=== PATIENT | female | born 1985 | race African-American/Black ===

== ENCOUNTER 2018-05-24 00:06 | Emergency (ER) | payer OTHER ==
[~2018-05-24] VITALS: Ht 177.8 cm; Wt 66.7 kg
[2018-05-24 00:23] VITALS: BP 138/82
--- NOTE | 2018-05-24 00:25 | NUR ---
ED Nurse Note: patient walked into Ed c/o of hemorrhoids in her anus, patient states that it started around 6 days ago, patient rates her pain a 10/10 pain. patient denies any bleeding, patient is alert and oriented x4, ambulatory with a steady gait, VSS
[2018-05-24] MEDS ORDERED: estrogen (00:27)
[2018-05-24] MEDS ORDERED: Clindamycin 150mg cap ORAL ONE (00:30)
[2018-05-24] MEDS ORDERED: Norco 5mg/325mg tab ORAL ONE (00:30)
[2018-05-24] MEDS ORDERED: Lidocaine 1% Plain 30 ml INJ ONE (00:45)
[2018-05-24 01:00] VITALS: BP 160/75
--- NOTE | 2018-05-24 01:00 | NUR ---
ED Nurse Note: patient is being discharged from ED after being cleared by ERMD. patient is alert and oriented x4, ambulatory with a steady gait, VSS. patient acknowledged the need to follow up with PMD within a week if symptoms dont improve, patients prescription in hand, ID band removed
[2018-05-24] MEDS ORDERED: IBUPROFEN600 MG ORAL (01:04)
[2018-05-24] MEDS ORDERED: HYDROCODON-ACE1 EA15 ORAL (01:04)
[2018-05-24] MEDS ORDERED: CLINDAMYCIN HC300 MG ORAL (01:04)
--- NOTE | 2018-05-24 01:05 | Emergency Room Report ---
History of Present Illness General Chief Complaint: Pain Source: Patient Present Illness HPI Is a 33-year-old transgender female who presents with rectal pain. Onset for about a week. Now there is swelling and no drainage. Pain is 10 out of 10. Worse with sitting. Worse with movement. No nausea no vomiting. No fever chills but never had this problem before. Denies any other complaint. She does have anal sex. Allergies: Coded Allergies: No Known Allergies (Unverified , 05/24/18) Patient History Past Medical History: see triage record, old chart reviewed Past Surgical History: other Pertinent Family History: none Social History: Denies: smoking Last Menstrual Period: Transgender Now: No Immunizations: other Reviewed Nursing Documentation: PMH: Agreed; PSxH: Agreed Review of Systems Eye: Denies: eye pain, blurred vision ENT: Denies: ear pain, nose congestion, throat swelling Respiratory: Denies: cough, shortness of breath Cardiovascular: Denies: chest pain, palpitations Gastrointestinal: Denies: abdominal pain, diarrhea, nausea, vomiting Musculoskeletal: Denies: back pain, joint pain Skin: Denies: rash Neurological: Denies: headache, numbness Endocrine: Denies: increased thirst, increased urine Hematologic/Lymphatic: Denies: easy bruising All Other Systems: negative except mentioned in HPI Physical Exam Vital Signs Date Time Temp Pulse Resp B/P (MAP) Pulse Ox O2 Delivery O2 Flow Rate FiO2 05/24/18 00:17 98.4 85 16 138/82 95 Room Air vitals normal Sp02 EP Interpretation: reviewed, normal General Appearance: well appearing, no apparent distress, alert Head: normocephalic, atraumatic Eyes: bilateral eye PERRL, bilateral eye EOMI ENT: hearing grossly normal, normal pharynx Neck: full range of motion, supple, no meningismus Respiratory: chest non-tender, lungs clear, normal breath sounds Cardiovascular #1: regular rate, rhythm, no murmur Gastrointestinal: normal bowel sounds, non tender, no mass, no organomegaly, no bruit, non-distended Rectal: other - Rectal: There is a perianal abscess about 3-4 cm. Tender to palpation. This is toward the right buttock. Musculoskeletal: back normal, gait/station normal, normal range of motion Psychiatric: mood/affect normal Skin: warm/dry Procedures Incision and Drainage Incision and Drainage : Consent: Verbal Site: Buttock Blade Size: 11 I & D Procedure: betadine prep Wound Location: other - Buttock Anesthesia: 1% Lidocaine Volume Anesthetic (ccs): 1 Patient Tolerated: Poor Complications: None Progress Area clean with Betadine. Local anesthetic with 1% lidocaine. I made a 1 cm incision. There was copious amount of purulent discharge. Patient cannot tolerate me going further with breaking up loculation or packing. Medical Decision Making Diagnostic Impression: Primary Impression: Perianal abscess ER Course Patient with a perianal abscess. Unlikely to have deep infection. No fever or chills. I did get copious amount of drainage. We'll put on antibiotics. We' ll need to recheck in 2 days. Last Vital Signs Date Time Temp Pulse Resp B/P (MAP) Pulse Ox O2 Delivery O2 Flow Rate FiO2 05/24/18 00:23 98.4 83 16 138/82 95 Room Air Status: improved Disposition: HOME, SELF-CARE Condition: Stable Scripts Ibuprofen* (MOTRIN*) 600 Mg Tablet 600 MG ORAL THREE TIMES A DAY, #30 TAB 0 Refills Prov: Emre Evans MD 05/24/18 Hydrocodone/Acetaminophen 5-325* (HYDROCODONE/ACETAMINOPHEN 5-325*) 1 Each Tablet 1 TAB ORAL Q6H PRN for For Pain, #15 TAB 0 Refills Prov: Emre Evans MD 05/24/18 Clindamycin Hcl (CLINDAMYCIN HCL) 300 Mg Capsule 300 MG ORAL THREE TIMES A DAY, #21 CAP Prov: Emre Evans MD 05/24/18 Referrals: NOT CHOSEN IPA/,REFERRING (PCP) Emre Evans MD May 24, 2018 01:05
== END 2018-05-24 01:00 | disposition home or self-care (01) ==
LOC: EMR 00:45
DX: K61.0 Anal abscess (principal)
CPT/HCPCS: 10060; 99283; J2001; Z7502

== ENCOUNTER 2018-07-06 16:25 | Emergency (ER) | payer OTHER ==
[~2018-07-06] VITALS: Ht 177.8 cm; Wt 66.2 kg
[~2018-07-06 16:25] MED LIST: CLINDAMYCIN HC300 MG ORAL; HYDROCODON-ACE1 EA15 ORAL; IBUPROFEN600 MG ORAL; estrogen
[2018-07-06 16:52] VITALS: BP 116/78
--- NOTE | 2018-07-06 16:53 | NUR ---
ED Nurse Note: pt walked in to ED due to toothache on right lower for last 2 days. AAO x4. respirations even and non-labored noted. will wait for the further order.
[2018-07-06] MEDS ORDERED: Ketorolac 30mg Inj IM ONE (17:15)
[2018-07-06] MEDS ORDERED: AMOXICILLIN500 MG ORAL (17:17)
[2018-07-06] MEDS ORDERED: ACETAMINOPHEN-1 EAC1 ORAL (17:17)
--- NOTE | 2018-07-06 17:17 | Emergency Room Report ---
History of Present Illness General Chief Complaint: Toothache Source: Patient Present Illness HPI 33-year-old female patient presents ER complaint of dental pain for the past 3 days. Reports that "I think 1 of my feelings fell out". Reports pain on the right lower side of her jaw. Reports subjective fever at home yesterday, currently afebrile in ER. States taking Motrin without relief of pain symptoms. Denies history of diabetes or other difficulty. Denies trismus. Reports able to talk without difficulty. Denies chest pain, shortness of breath. States attempted to go see her dentist however was turned away because she not have her dental insurance card and would not be seen without it. Allergies: Coded Allergies: No Known Allergies (Unverified , 05/24/18) Patient History Past Medical History: see triage record Now: No Reviewed Nursing Documentation: PMH: Agreed; PSxH: Agreed Nursing Documentation-PMH Past Medical History: No History, Except For Review of Systems All Other Systems: negative except mentioned in HPI Physical Exam Vital Signs Date Time Temp Pulse Resp B/P (MAP) Pulse Ox O2 Delivery O2 Flow Rate FiO2 07/06/18 16:28 98.1 82 20 116/78 95 Room Air Sp02 EP Interpretation: reviewed, normal General Appearance: well appearing, no apparent distress, alert, GCS 15, non- toxic Head: normocephalic, atraumatic Eyes: bilateral eye normal inspection, bilateral eye PERRL ENT: hearing grossly normal, normal pharynx, no angioedema, normal voice, TMs + canals normal, uvula midline, moist mucus membranes, other - right lower gum: broken tooth, mild erythema, TTP, no abscess Neck: full range of motion, no meningismus Respiratory: lungs clear, normal breath sounds, no rhonchi, no respiratory distress, no accessory muscle use, no wheezing, speaking full sentences Cardiovascular #1: regular rate, rhythm, no edema Gastrointestinal: non tender, soft, no mass, non-distended, no guarding, no rebound Musculoskeletal: back normal, digits/nails normal, gait/station normal, normal range of motion, non-tender Psychiatric: mood/affect normal Skin: no rash Medical Decision Making PA Attestation Dr. Lundy is my supervising Physician whom patient management has been discussed with. Diagnostic Impression: Primary Impression: Toothache ER Course Pt. presents to the ED c/o dental pain. Ddx considered but are not limited to cellulitis, abscess, dental caries, gingivitis. Does not require imaging at this time. Vital signs: are WNL, pt. is afebrile ED INTERVENTIONS: Pain medication provided in the ER. Nontoxic appearing, speaking full sentences, no active draining, mild edema, no trismus or vision changes. No signs of abscess, no fluctuance, erythema or edema. follow-up with dentist. Will provide abx for infection to cover for possible infection. provided with contact information for dentists. F/u with PCP and dentist for further treatment. DISCHARGE: -Rx provided for Amoxicillin -Rx provided for Tylenol No. 3. CURES reviewed. At this time pt. is stable for d/c to home. Patient is resting comfortably, in no acute distress, nontoxic appearing, talking and smiling without difficulty. Will provide printed patient care instructions and any necessary prescriptions. Care plan and follow up instructions have been discussed with the patient prior to discharge. Patient instructed to follow-up with primary care provider in 2 - 3 days. Followup with dentist. Patient questions asked and answered. Patient reports understanding and agreement to treatment plan. ER precautions given. Patient instructed to return to ER immediately for any new or worsening of symptoms including but not limited to fever, worsening of pain symptoms, worsening of erythema, red streaking. - Please note that this Emergency Department Report was dictated using [employer] header technology software, occasionally this can lead to erroneous entry secondary to interpretation by the dictation equipment. Last Vital Signs Date Time Temp Pulse Resp B/P (MAP) Pulse Ox O2 Delivery O2 Flow Rate FiO2 07/06/18 16:52 98.1 82 20 116/78 95 Room Air Status: improved Disposition: HOME, SELF-CARE Condition: Stable Scripts Acetaminophen With Codeine (T#3) (TYLENOL #3 TAB*) Y Tab 1 TAB ORAL Q6HR PRN for For Pain, #10 TAB Prov: George Torres.Chuck 07/06/18 Amoxicillin* (AMOXIL*) 500 Mg Capsule 500 MG ORAL EVERY 8 HOURS for 7 Days, #21 CAP Prov: George Torres.Chuck 07/06/18 Patient Instructions: Dental Pain Additional Instructions: Follow-up with dentist in 2-3 days. Take medications as directed. Do not drink, drive, operate heavy machinery prior to taking medication, may cause drowsiness. Patient questions asked and answered. ER precautions given, patient instructed to return to ER immediately for any new or worsening of symptoms. George Torres Jul 06, 2018 17:17
[2018-07-06 17:29] VITALS: BP 116/78
--- NOTE | 2018-07-06 17:29 | NUR ---
ER DISCHARGE NOTE: Patient is cleared to be discharged per ERMD, pt is aox4, on room air, with stable vital signs. pt was given dc and prescription instructions, pt was able to verbalize understanding, pt id band removed. pt is able to ambulate with steady gait. pt took all belongings.
== END 2018-07-06 17:29 | disposition home or self-care (01) ==
LOC: EMR 17:00
DX: K08.89 Other specified disorders of teeth and supporting structures (principal)
CPT/HCPCS: 96372; 99283; J1885

== ENCOUNTER → 2019-02-05 | Emergency (ER) | payer OTHER ==
[~2019-02-05] VITALS: Ht 177.8 cm; Wt 64.4 kg
[~2019-02-05] MED LIST changes: +ACETAMINOPHEN-1 EAC1 ORAL; +AMOXICILLIN500 MG ORAL; +Dicyclomine HCl 10mg/5ml oral soln ORAL ONE; +Lidocaine 2% Visc 15ml soln ORAL ONE; +Mylanta II UD 30ml ORAL ONE; +ONDANSETRON ODT4 MG BC; +RANITIDINE HCL150 MG ORAL
--- NOTE | 2019-02-05 07:45 | NUR ---
ED Nurse Note: Pt walked in from home c/o vomiting since yesterday. Denies diarrhea. Pt aaox, on room air, no respiratory noted. Pt refused to be in gown, placed on residential monitor shows sinus bradycardia, HR 49-50. Will continue to monitor.
--- NOTE | 2019-02-05 07:50 | NUR ---
ED Nurse Note: IV inserted on right AC 20g, patient tolerated well. Labs drawn and was sent down.
--- NOTE | 2019-02-05 08:00 | NUR ---
ED Nurse Note: ERMD at bedside.
[2019-02-05 08:01] VITALS: BP 101/54
[2019-02-05 08:10] LABS: BASOPHILS % (AUTO) 1.1 % (0.0-2.0); EOSINOPHILS % (AUTO) 2.9 % (0.0-3.0); HEMATOCRIT 40.8 % (37.0-47.0); HEMOGLOBIN 13.4 G/DL (12.0-16.0); LYMPHOCYTES % (AUTO) 27.1 % (20.0-45.0); MEAN CORPUSCULAR VOLUME 92 FL (80-99); MONOCYTES % (AUTO) 8.4 % (1.0-10.0); NEUTROPHILS % (AUTO) 60.4 % (45.0-75.0); PLATELET COUNT 242 K/UL (150-450); RED BLOOD COUNT 4.46 M/UL (4.20-5.40); RED CELL DISTRIBUTION WIDTH 13.8 % (11.6-14.8); WHITE BLOOD COUNT 7.2 K/UL (4.8-10.8)
[2019-02-05 08:35] LABS: ANION GAP 7 mmol/L (5-15); BLOOD UREA NITROGEN 7 mg/dL (7-18); CALCIUM 8.3 MG/DL (8.5-10.1); CARBON DIOXIDE 30 MMOL/L (21-32); CHLORIDE 106 MMOL/L (98-107); POTASSIUM 3.7 MMOL/L (3.5-5.1); SODIUM 143 MMOL/L (136-145)
[2019-02-05 08:40] LABS: ALANINE AMINOTRANSFERASE 12 U/L (12-78); ALBUMIN 3.6 G/DL (3.4-5.0); ALBUMIN/GLOBULIN RATIO 1.1 (1.0-2.7); ALKALINE PHOSPHATASE 55 U/L (46-116); ASPARTATE AMINO TRANSFERASE 17 U/L (15-37); BILIRUBIN,TOTAL 0.3 MG/DL (0.2-1.0)
[2019-02-05 09:12] LABS: APPEARANCE,URINE CLEAR; BILIRUBIN, URINE NEGATIVE (NEGATIVE); GLUCOSE, URINE (UA) NEGATIVE (NEGATIVE); KETONES,URINE NEGATIVE (NEGATIVE); LEUKOCYTE ESTERASE ,URINE 1+ (NEGATIVE); NITRITE,URINE NEGATIVE (NEGATIVE); PH,URINE 8 (4.5-8.0); PROTEIN,URINE NEGATIVE (NEGATIVE); UROBILINOGEN,URINE NORMAL MG/DL (0.0-1.0)
[2019-02-05 09:14] LABS: COLOR,URINE YELLOW
[2019-02-05 09:16] VITALS: BP 102/62
--- NOTE | 2019-02-05 09:50 | NUR ---
ER DISCHARGE NOTE: Patient is cleared to be discharged per ERMD, pt is aox4, on room air, with stable vital signs. pt was given dc and prescription instructions, pt was able to verbalize understanding, pt id band and iv site removed without complications. pt is able to ambulate with steady gait. pt took all belongings.
[2019-02-05 09:51] VITALS: BP 117/72
--- NOTE | 2019-02-05 10:57 | Emergency Room Report ---
History of Present Illness General Chief Complaint: Abdominal Pain Source: Patient Present Illness HPI 34-year-old transgender female presents ED for evaluation. Complaining of abdominal pain with nausea and vomiting. Started yesterday morning. States the night prior she ate some poorly cooked pasta. States she is been having multiple episodes of vomiting and abdominal pain. Epigastric, burning, 7 out of 10, nonradiating. Denies fevers or chills. Denies chest pain. Denies diarrhea. Denies sick contacts or recent travel. No other aggravating relieving factors. Denies any other associated symptoms Allergies: Coded Allergies: No Known Allergies (Unverified , 05/24/18) Patient History Past Medical History: HIV Past Surgical History: other - transgender Pertinent Family History: none Social History: Denies: smoking, alcohol use, drug use Now: No Immunizations: UTD Reviewed Nursing Documentation: PMH: Agreed; PSxH: Agreed Nursing Documentation-PMH Past Medical History: No History, Except For Review of Systems All Other Systems: negative except mentioned in HPI Physical Exam Vital Signs Date Time Temp Pulse Resp B/P (MAP) Pulse Ox O2 Delivery O2 Flow Rate FiO2 02/05/19 07:34 97.5 55 16 112/76 (88) 98 Room Air Sp02 EP Interpretation: reviewed, normal General Appearance: no apparent distress, alert, GCS 15, non-toxic, thin Head: normocephalic, atraumatic Eyes: bilateral eye normal inspection, bilateral eye PERRL ENT: hearing grossly normal, normal pharynx, no angioedema, normal voice Neck: full range of motion, supple/symm/no masses Respiratory: chest non-tender, lungs clear, normal breath sounds, speaking full sentences Cardiovascular #1: regular rate, rhythm, no edema Cardiovascular #2: 2+ carotid (R), 2+ carotid (L), 2+ radial (R), 2+ radial (L) , 2+ dorsalis pedis (R), 2+ dorsalis pedis (L) Gastrointestinal: normal bowel sounds, soft, non-distended, no guarding, no rebound, tenderness - epigastric Rectal: deferred Genitourinary: normal inspection, no CVA tenderness Musculoskeletal: back normal, gait/station normal, normal range of motion, non- tender Neurologic: alert, oriented x3, responsive, motor strength/tone normal, sensory intact, speech normal Psychiatric: judgement/insight normal, memory normal, mood/affect normal, no suicidal/homicidal ideation Reflexes: 3+ bicep (R), 3+ bicep (L), 3+ tricep (R), 3+ tricep (L), 3+ knee (R) , 3+ knee (L) Skin: no rash Lymphatic: no adenopathy Medical Decision Making Diagnostic Impression: Primary Impression: Gastritis Qualified Codes: K29.00 - Acute gastritis without bleeding ER Course Hospital Course 34-year-old transgender F presents to ED with epigastric pain with N/V. differential diagnosis: gastritis, SBO, cholecystits Clinical course Patient placed on stretcher. On anatomic pathology assistant. After initial history and physical I ordered labs, IV fluids, Zofran, pepcid, GI cocktail Labs - no leukocytosis, no electrolyte abnormalities, LFTs normal, UA unremarkable on reassessment patient states she feels better. Tolerating p.o. intake. Discussed findings with patient. Will discharge to home. States she has a PMD I feel this is a highly complex case requiring extensive working including EKG/ Rhythm strip, Xray/CT/US, Blood/urine lab work, repeat exams while in ED, and administration of strong opiates/narcotics for pain control, admission to hospital or close patient follow up. Diagnosis - gastritis Stable and discharged to home with prescriptions for Zantac, zofran. Followup with PMD. Return to ED if symptoms recur or worsen Labs Test 02/05/19 07:52 02/05/19 09:00 White Blood Count 7.2 K/UL (4.8-10.8) Red Blood Count 4.46 M/UL (4.20-5.40) Hemoglobin 13.4 G/DL (12.0-16.0) Hematocrit 40.8 % (37.0-47.0) Mean Corpuscular Volume 92 FL (80-99) Mean Corpuscular Hemoglobin 30.0 PG (27.0-31.0) Mean Corpuscular Hemoglobin Concent 32.8 G/DL (32.0-36.0) Red Cell Distribution Width 13.8 % (11.6-14.8) Platelet Count 242 K/UL (150-450) Mean Platelet Volume 7.4 FL (6.5-10.1) Neutrophils (%) (Auto) 60.4 % (45.0-75.0) Lymphocytes (%) (Auto) 27.1 % (20.0-45.0) Monocytes (%) (Auto) 8.4 % (1.0-10.0) Eosinophils (%) (Auto) 2.9 % (0.0-3.0) Basophils (%) (Auto) 1.1 % (0.0-2.0) Sodium Level 143 MMOL/L (136-145) Potassium Level 3.7 MMOL/L (3.5-5.1) Chloride Level 106 MMOL/L (98-107) Carbon Dioxide Level 30 MMOL/L (21-32) Anion Gap 7 mmol/L (5-15) Blood Urea Nitrogen 7 mg/dL (7-18) Creatinine 1.0 MG/DL (0.55-1.30) Estimat Glomerular Filtration Rate > 60 mL/min (>60) Glucose Level 106 MG/DL (74-106) Calcium Level 8.3 MG/DL (8.5-10.1) Total Bilirubin 0.3 MG/DL (0.2-1.0) Aspartate Amino Transf (AST/SGOT) 17 U/L (15-37) Alanine Aminotransferase (ALT/SGPT) 12 U/L (12-78) Alkaline Phosphatase 55 U/L (46-116) Total Protein 6.9 G/DL (6.4-8.2) Albumin 3.6 G/DL (3.4-5.0) Globulin 3.3 g/dL Albumin/Globulin Ratio 1.1 (1.0-2.7) Lipase 261 U/L (73-393) Human Chorionic Gonadotropin, Qual Negative (NEGATIVE) Urine Color Yellow Urine Appearance Clear Urine pH 8 (4.5-8.0) Urine Specific [place] 1.010 (1.005-1.035) Urine Protein Negative (NEGATIVE) Urine Glucose (UA) Negative (NEGATIVE) Urine Ketones Negative (NEGATIVE) Urine Blood Negative (NEGATIVE) Urine Nitrite Negative (NEGATIVE) Urine Bilirubin Negative (NEGATIVE) Urine Urobilinogen Normal MG/DL (0.0-1.0) Urine Leukocyte Esterase 1+ (NEGATIVE) Urine RBC 0 /HPF (0 - 2) Urine WBC 15-20 /HPF (0 - 2) Urine Squamous Epithelial Cells Few /LPF (NONE/OCC) Urine Transitional Epithelial Cells /LPF (NONE) Urine Bacteria Occasional /HPF (NONE) Urine Mucus Moderate /LPF (NONE/OCC) Urine HCG, Qualitative Negative (NEGATIVE) Last Vital Signs Date Time Temp Pulse Resp B/P (MAP) Pulse Ox O2 Delivery O2 Flow Rate FiO2 02/05/19 09:51 97.2 52 16 117/72 100 Room Air Status: improved Disposition: HOME, SELF-CARE Condition: Stable Scripts Ondansetron Odt* (ZOFRAN ODT*) 4 Mg Tab.rapdis 4 MG BC EVERY 6 HOURS PRN for Nausea & Vomiting, #20 TAB 0 Refills Prov: Greg Kaur MD 02/05/19 Ranitidine Hcl* (ZANTAC*) 150 Mg Tablet 150 MG ORAL TWICE A DAY, #30 TAB Prov: Greg Kaur MD 02/05/19 Patient Instructions: Gastritis, Adult, [id number] Greg Kaur MD Feb 05, 2019 10:57
== END | disposition home or self-care (01) ==
LOC: EMR 07:54
DX: K29.70 Gastritis, unspecified, without bleeding (principal); B20 Human immunodeficiency virus [HIV] disease
CPT/HCPCS: 36415; 80053; 81003; 81025; 83690; 84703; 85025; 87086; 96361; 96374; 96375; J2405; S0028; Z7502; 99284